=== PATIENT | female | born 1950 | race African-American/Black ===

== ENCOUNTER → 2016-08-07 | Outpatient (CLI) | payer OTHER ==
[~2016-08-07] MED LIST: AMLODIPINE BESYL5 MG PO; COLACE CLEAR50 MG PO; CORRECTOL5 M2 PO; DULCOLAX10 MG; FLORASTORKIDS250 MG PO; HUMALOG100 UNIT/2; HYDRALAZINE HCL25 MG PO; INTRALIPID IV; OXAYDO7.5 MG PO; PANTOPRAZOLE SO40 MG PO; PHENERGAN12.5 M2 PO; SELFEMRA20 MG PO; TPN ELECTROLYTE20 M2 IV; VANCOCIN HCL250 MG PO; ZOFRAN ODT4 M1 PO
== END | disposition home or self-care (01) ==
LOC: CSSDAY 07:23
DX: D50.9 Iron deficiency anemia, unspecified (principal); K90.9 Intestinal malabsorption, unspecified; Z79.2 Long term (current) use of antibiotics
CPT/HCPCS: 36415; 36430; 86850; 86900; 86901; 86923; P9016